=== PATIENT | female | born 1985 | race Caucasian/White ===

== ENCOUNTER 2019-02-09 06:04 | Day surgery (SDC) | payer BC ==
[2019-02-09] VITALS (15 sets, daily range): BP systolic 109–129; BP diastolic 54–75
[~2019-02-09] VITALS: Ht 170.2 cm; Wt 83.9 kg
[~2019-02-09 06:04] MED LIST: NKM
[2019-02-09] MEDS ORDERED: cefOXitin Sod 2 GM in D5W 110 ML IVPB ONE (07:00)
[2019-02-09] MEDS ORDERED: ProvayBlue 5mg/ml 10ml amp INJ ONE (07:00)
[2019-02-09] MEDS ORDERED: TransDerm Scop 1mg/72HR Patch TDERMAL ONE ×2 (07:04→08:30)
[2019-02-09] MEDS ORDERED: Succinylcholine 20mg/ml 10ml vial ONE (07:04)
[2019-02-09] MEDS ORDERED: Zemuron 50mg/5ml Inj IV ONE (07:04)
[2019-02-09] MEDS ORDERED: Ropivacaine 5mg/ml Vial 30ml INJ ONE (07:04)
[2019-02-09] MEDS ORDERED: fentaNYL 100 mcg/2 mL IV ONE (07:10)
[2019-02-09] MEDS ORDERED: Propofol 200mg/20ml IV ONE (07:10)
[2019-02-09] MEDS ORDERED: Lidocaine 1% MPF 10mg/ml 5ml ONE (07:10)
[2019-02-09] MEDS ORDERED: Midazolam 2mg/2ml Inj ONE (07:10)
[2019-02-09] MEDS ORDERED: cefOXitin 1gm Inj ONE (07:20)
[2019-02-09] MEDS ORDERED: NS Irrig 1000ml ONE (07:30)
[2019-02-09] MEDS ORDERED: Neostigmine 1mg/ml 10ml Inj ONE (07:30)
[2019-02-09] MEDS ORDERED: Sterile Water Irrig 1000ml IRRIG ONE (07:30)
[2019-02-09] MEDS ORDERED: LR 1000ml ONE (07:30)
--- NOTE | 2019-02-09 07:42 | Pre-Procedure Note/Attestation ---
Pre-Procedure Note/Attestation Complete Prior to Procedure Planned Procedure: left Procedure Narrative: Laparoscopic left ovarian cystectomy, hysteroscopy, dilation and curettage, possible fulguration of endometriosis Indications for Procedure Pre-Operative Diagnosis: Left ovarian cyst (likely dermoid), heavy vaginal bleeding, right lower quadrant pain Attestation I attest that I discussed the nature of the procedure; its benefits; risks and complications; and alternatives (and the risks and benefits of such alternatives ), prior to the procedure, with the patient (or the patient's legal car sales representative). I attest that, if there was a reasonable possibility of needing a blood transfusion, the patient (or the patient's legal car sales representative) was given the [place] [employer] standardized written summary, pursuant to the Alex Sabine Blood Safety Act ([place] Health and Safety Code # 1645, as amended). I attest that I re-evaluated the patient just prior to the surgery and that there has been no change in the patient's H&P, except as documented below: None Lillie Huang M.D. Feb 09, 2019 07:42
[2019-02-09] MEDS ORDERED: LR 1000ml 1,000 ML IVLG SCH (08:25)
--- NOTE | 2019-02-09 08:25 | Anethesia Preoperative Eval ---
Anesthesia Pre-op PMH/ROS General Date of Evaluation: Feb 09, 2019 Time of Evaluation: 07:20 Anesthesiologist: Jose ASA Score: ASA 2 Mallampati Score Class I : Soft palate, uvula, fauces, pillars visible Class II: Soft palate, uvula, fauces visible Class III: Soft palate, base of uvula visible Class IV: Only hard plate visible Mallampati Classification: Class II Surgeon: Reina Diagnosis: Pelvic pain Surgical Procedure: D&C Laparoscopy Anesthesia History: none Family History: no anesthesia problems Allergies: Coded Allergies: No Known Allergies (Unverified , 02/09/19) Medications: see eMAR Patient NPO?: Yes Past Medical History Cardiovascular: Denies: HTN, CAD, FL, valve dz, arrhythmia, other Pulmonary: Denies: asthma, COPD, LEVI, other Gastrointestinal/Genitourinary: Reports: GERD; Denies: CRI, ESRD, other Neurologic/Psychiatric: Denies: dementia, CVA, depression/anxiety, TIA, other Endocrine: Denies: DM, hypothyroidism, steroids, other HEENT: Denies: cataract (L), cataract (R), glaucoma, CRAIG (L), CRAIG (R), other Hematology/Immune: Denies: anemia, DVT, bleeding disorder, other Musculoskeletal/Integumentary: Denies: OA, RA, DJD, DDD, edema, other PMH Narrative: as above PSxH Narrative: Ovarian cystectomy Anesthesia Pre-op Phys. Exam Physician Exam Last Vital Signs Date Time Temp Pulse Resp B/P (MAP) Pulse Ox O2 Delivery O2 Flow Rate FiO2 02/09/19 06:43 Room Air 02/09/19 06:41 97.1 64 16 123/62 98 Constitutional: NAD Neurologic: CN 2-12 intact Cardiovascular: RRR, no M/R/G Respiratory: CTA Gastrointestinal: S/NT/ND Airway Exam Mallampati Score: Class II MO: full Neck: flexible ROM: full Teeth: intact Dentures: no upper, no lower Anesthesia Pre-op A/P Labs Chemistry Test 02/09/19 06:35 Human Chorionic Gonadotropin, Qual Negative (NEGATIVE) Serum Test Test 02/09/19 06:35 Human Chorionic Gonadotropin, Qual Negative (NEGATIVE) Risk Assessment & Plan Assessment: ASA 2 Plan: GA with ETT PONV prevention Status Change Before Surgery: No Pre-Antibiotics Drug: Cefoxitin 1gr. Given Within 1 Hr of Incision: Yes Time Given: 08:10 Kaden Garcia MD Feb 09, 2019 08:25
[2019-02-09] MEDS ORDERED: Morphine Sulfate 10mg/ml Inj ONE (08:27)
[2019-02-09] MEDS ORDERED: Sodium Chloride 10ml vial INJ ONE (08:28)
[2019-02-09] MEDS ORDERED: Ketorolac 30mg Inj ONE (08:28)
[2019-02-09] MEDS ORDERED: Glycopyrrolate 0.2mg/ml 1ml Vial ONE (08:28)
[2019-02-09] MEDS ORDERED: Metoclopramide 10mg/2ml Inj IVP PRN (08:30)
[2019-02-09] MEDS ORDERED: Meperidine 50mg/ml Inj(FOR RIGORS ONLY) IV PRN (08:30)
[2019-02-09] MEDS ORDERED: Ketorolac 30mg Inj IV PRN (08:30)
[2019-02-09] MEDS ORDERED: DiphenhydrAMINE 50mg/ml Inj IVP PRN (08:30)
--- NOTE | 2019-02-09 10:50 | Operative Note - PDOC ---
Operative Note Operative Note Date of Operation/Procedure: Feb 09, 2019 Chief Complaint: Pelvic pain, heavy vaginal bleeding Pre-op Diagnosis: Left ovarian cyst (likely dermoid), heavy vaginal bleeding, right lower quadrant pain Procedure: Laparoscopic left ovarian cystectomy, hysteroscopy, dilation and curettage, fulguration of endometriosis Post-op Diagnosis: Left dermoid cyst of the ovary, uterine polyp, endometriosis Post-op Diagnosis: same as pre-op plus - Endometriosis of pelvis, polyp of uterus Operative Findings: consistent w/pre-op dx studies - Dermoid on left, however also noted endometriosis on bilateral tubes and in cul de sac. Surgeon: Lillie Huang MD Division Human Resources Manager: Edson Guevara MD Anesthesiologist: Dr. Garcia Anesthesia: general Specimen: yes - Endometrial curettings, uterine polyp, left ovarian cyst Complications: none Condition: stable Fluids: 1500cc crystalloid Estimated Blood Loss: minimal Drains: none - Joy removed at end of case, 300cc clear urine at end of procedure Implant(s) used?: No Indications for Procedure Heavy vaginal bleeding, pelvic pain, cyst on left ovary Description of Procedure The R/B/A of the procedure were discussed with the patient at length, and informed consent was obtained. The patient was taken to the operating room with IV in place. She was placed on the OR table in the dorsal supine position with SCD stockings in place. General anesthia was administered without difficulty. The patient was placed in the dorsal lithotomy position with arms tucked at her sides. The patient was then prepped and draped in the usual sterile fashion and joy catheter was placed. A time out was called to verify patient and procedure. Attention was turned to the pelvis. A speculum was inserted and the anterior lip of the cervix was grasped with a single-toothed tenaculum. The cervix was sequentially dilated to accommodate the 6mm hysteroscope. The hysteroscope was inserted and the uterine cavity was visualized. Bilateral ostia were visualized and noted to be normal. There was polypoid tissue noted in the right cornual region. No other abnormalities were noted. The hysteroscope was withdrawn and polypectomy was performed followed by fractional curettage. The hysteroscope was reinserted and the cavity was reinspected and noted to be normal. A uterine manipulator was placed and stabilized, all other instruments removed from the vagina, and attention was turned to the abdomen. A vertical incision was made in the umbilicus after infiltration of Naropin. The Veress needle was inserted, however adequate insufflation was unobtainable. Insufflation was attempted in the left upper quadrant through an incision made after infiltration of Naropin, however again adequate insufflation was unobtainable. We proceeded with direct visual entry with a 5mm non-bladed trochar and abdominal entry was successful. Adequate insufflation was obtained with CO2 gas. The abdomen was inspected and no harm due to the procedure done was noted. Bilateral lower quadrant incisions were made and a 5mm port was placed in the left lower quadrant after infiltration of Naropin and a 10mm port was placed in the right lower quadrant using the same technique. The patient was placed in Trendelenburg and the abdomen and pelvis were inspected. Endometriosis was noted on the right uterosacral ligament, and on the isthmus/ infundibular portions of both fallopian tubes. The dermoid cyst was identified on the left. The right ovary was noted to be normal. We proceeded with cystectomy. The left ovary was elevated and the ovarian tissue was incised to reveal the dermoid capsule. The dermoid ruptured during the procedure, however rupture was contained. The cyst capsule was dissected away from the normal ovarian tissue and the capsule and its contents were evacuated via the right lower quadrant port site. Hemostasis of the ovary was achieved using bipolar electrosurgery. Attention was turned to the areas of endometriosis previously identified. The areas of endometriosis were fulgurated carefully with monopolar electrosurgery, with great care to ensure no damage to surrounding tissues. Excellent hemostasis was noted. The pelvis and abdomen were copiously irrigated. The ovary was inspected once again and excellent hemostasis was noted. The procedure was terminated. The right lower quadrant port site fascia was reapproximated with 0-Vicryl suture and the skin incisions were closed with 4-0 Monocryl subcuticularly followed by Mastisol and steri-strips. The incisions were covered with gauze and tape. Attention was turned to the pelvis and the uterine manipulator was removed without incident. Joy catheter removed. All instrument, needle, and sponge counts were correct x 2. The patient was awakened from anesthesia and transferred to the PACU for anticipated discharge once she has met all criteria. Lillie Huang M.D. Feb 09, 2019 10:49
[2019-02-09] MEDS ORDERED: HYDROcodone/Acetamin 5/325 tab ORAL PRN (11:00)
[2019-02-09] MEDS ORDERED: HYDROmorphone 1mg/ml Carpuject SUBQ PRN (11:00)
--- NOTE | 2019-02-09 11:02 | Immediate Post-Op Evaluation ---
Immediate Post-Op Evalulation Immediate Post-Op Evalulation Procedure: D&C Hysteroscopy, laparoscopic removal of ovarian cyst Date of Evaluation: Feb 09, 2019 Time of Evaluation: 11:01 IV Fluids: 1500 Blood Products: none Estimated Blood Loss: 50 Urinary Output: 300 Blood Pressure Systolic: 126 Blood Pressure Diastolic: 72 Pulse Rate: 68 Respiratory Rate: 20 O2 Sat by Pulse Oximetry: 98 Temperature (Fahrenheit): 97.8 Pain Score (1-10): 2 Nausea: No Vomiting: No Complications none Patient Status: reacts, patent, none Hydration Status: adequate Kaden Garcia MD Feb 09, 2019 11:02
--- NOTE | 2019-02-09 13:41 | 48 Hour Post Anesthesia Eval ---
Post Anesthesia Evaluation Procedure: D&C Hysteroscopy, laparoscopic removal of ovarian cyst Date of Evaluation: Feb 09, 2019 Time of Evaluation: 13:40 Blood Pressure Systolic: 124 0: 72 Pulse Rate: 74 Respiratory Rate: 20 Temperature (Fahrenheit): 97.5 O2 Sat by Pulse Oximetry: 98 Airway: patent Nausea: No Vomiting: No Pain Intensity: 2 Hydration Status: adequate Cardiopulmonary Status: stable Mental Status/LOC: patient returned to baseline Follow-up Care/Observations: n/a Post-Anesthesia Complications: none Follow-up care needed: ready to discharge Kaden Garcia MD Feb 09, 2019 13:41
[2019-02-09] MEDS ORDERED: D5 1/2NS 1,000 ML IV SCH (15:00)
--- NOTE | 2019-02-09 16:30 | NUR ---
Assisted to the bathroom for the second time . Ambulating with steady gait. Patient unable unable to void. "Does not have the urge to urinate".
--- NOTE | 2019-02-09 16:55 | NUR ---
Dr. Rashid notified re: patient unable to void. "Will see patient" as stated by Dr. Rashid.
--- NOTE | 2019-02-09 17:30 | NUR ---
Dr. Rashid here to see patient and examined. Bladder scan done with urine residual of 287. IV fluids infusing well.
--- NOTE | 2019-02-09 18:00 | NUR ---
Patient assisted to the bathroom and voided x1 ,quantity sufficient. Dr. Rashid notified. Ordered for patient to discharged.
== END 2019-02-09 18:35 | disposition home or self-care (01) ==
LOC: SUR 06:04
DX: N93.9 Abnormal uterine and vaginal bleeding, unspecified (principal); R10.31 Right lower quadrant pain; N84.0 Polyp of corpus uteri; N80.9 Endometriosis, unspecified; D27.1 Benign neoplasm of left ovary; K21.9 Gastro-esophageal reflux disease without esophagitis
CPT/HCPCS: 36415; 58558; 58662; 84703; J0330; J0694; J1885; J2250; J2270; J2405; J2704; J2710; J2765; J2795; J3010; 94003; 94150